=== PATIENT | female | born 1970 | race African-American/Black ===

== ENCOUNTER 2021-06-14 14:36 | Emergency (ER) | payer BC, OTHER ==
[~2021-06-14] VITALS: Ht 160 cm; Wt 90.7 kg
[2021-06-14 15:57] LABS: HEMATOCRIT 35.9 % (37.0-47.0); HEMOGLOBIN 11.9 gm/dL (12.0-15.0); MCH 26.5 pg (26.0-34.0); MCHC 33.2 g/dL (28.0-37.0); MCV 79.9 fL (80.0-100.0); RBC 4.49 mil/uL (4.20-5.00); RDW 13.3 % (10.5-14.5); WBC 5.1 thou/uL (4.0-11.0)
[2021-06-14 16:12] LABS: CALCIUM 8.6 mg/dL (8.5-10.1); CREATININE 0.9 mg/dL (0.6-1.0); POTASSIUM 3.7 mmol/L (3.5-5.1)
[2021-06-14 16:22] LABS: ALBUMIN 3.2 g/dL (3.4-5.0); MAGNESIUM 2.1 mg/dL (1.8-2.4); TOTAL BILIRUBIN 0.3 mg/dL (0.2-1.0); TOTAL PROTEIN 6.6 g/dL (6.4-8.2)
[2021-06-14 17:48] LABS: URINE BILIRUBIN NEGATIVE (Negative); URINE BLOOD NEGATIVE (Negative); URINE CLARITY CLEAR; URINE COLOR YELLOW; URINE GLUCOSE-RANDOM* NEGATIVE (Negative); URINE KETONES NEGATIVE (Negative); URINE LEUKOCYTES-REFLEX NEGATIVE (Negative); URINE NITRITE-REFLEX POSITIVE (Negative); URINE PROTEIN (DIPSTICK) NEGATIVE (Negative); URINE SPECIFIC GRAVITY <= 1.005 (1.005-1.035); URINE UROBILINOGEN 0.2 E.U./dl (0.2-1.0)
[2021-06-14 18:05] LABS: SQUAMOUS 0-3 Few /LPF (0-3); URINE WBC-REFLEX 0-5 Rare /HPF (0-5)
[2021-06-14 18:06] LABS: BACTERIA-REFLEX >30 Many /HPF (None Seen); CASTS None Seen /LPF (None Seen); CRYSTALS None Seen /LPF (None Seen); URINE RBC None Seen /HPF (NONE SEEN)
[2021-06-14] MEDS ORDERED: CEPHALEXIN500 MG PO (18:13)
[2021-06-14 18:34] VITALS: BP 160/90
--- NOTE | 2021-06-15 07:41 | EKG ---
[facility] [place] [address] ELECTROCARDIOGRAM REPORT Name: LILIANA GUZMAN Room #: [place]#: [id number] Admission: 06/14/21 Attend Phys: Discharge: 06/14/21 Date of : 68 Report #: [id number] [facility] ED Test Date: 2021-06-14 Test Time: 14:50:20 Pat Name: LILIANA GUZMAN Department: Room: Gender: F [employer]: JEANETH : 1970 Requested By: Paula Stoll Order Number: [id number] MD: Ted Crow Measurements Intervals [place] Rate: 94 P: 96 [place]: 134 QRS: -25 QRSD: 87 T: 128 QT: 324 QTc: 406 Interpretive Statements Sinus rhythm LVH with secondary repolarization abnormality Baseline wander in lead(s) V3,V6 No previous ECG available for comparison Electronically Signed On 06-15-2021 7:41:07 [employer]PER[employer] by Ted Crow [email or web address] <ELECTRONICALLY SIGNED> By: Ted Crow MD, [facility] 06/15/21 0741 1450 1450 Ted Crow MD, FACC /EPI
== END 2021-06-14 18:46 | disposition home or self-care (01) ==
LOC: ER 14:36
PROVIDERS: Nurse Practitioner; Nurse Practitioner Family
DX: R07.89 Other chest pain (principal); Z20.822 Contact with and (suspected) exposure to COVID-19; N39.0 Urinary tract infection, site not specified; R53.1 Weakness; I10 Essential (primary) hypertension